=== PATIENT | female | born 1945 ===

== ENCOUNTER 2018-05-16 10:17 | Outpatient (CLI) | payer MEDICARE | END 2018-05-16 10:18 | disposition home or self-care (01) | LOC: C.DEXAIC 10:17 | DX: M81.0 Age-related osteoporosis without current pathological fracture (principal) ==

== ENCOUNTER 2018-08-10 06:02 | Day surgery (SDC) | payer MEDICARE ==
[2018-08-09 11:30] VITALS: BMI 36.8
[2018-08-10] MEDS ORDERED: Lactated Ringer's 1,000 ML IV ONE (07:55)
[2018-08-10] MEDS ORDERED: Propofol 10 mg/ml Inj (20 ML) ONE ×2 (08:05→08:16)
[2018-08-10] MEDS ORDERED: Etomidate 20 mg/10ml Inj IV ONE (08:05)
[2018-08-10] MEDS ORDERED: ePHEDrine 50 mg/ml Inj ONE (08:14)
[2018-08-10] MEDS ORDERED: Atropine 0.4 mg/ml Inj (1 mL) ONE (08:14)
[2018-08-10 08:53] VITALS: TEMP 98
[2018-08-10 09:09] VITALS: O2SAT 100
[2018-08-10 09:47] VITALS: BP 127/58; PULSE 65; RESP 18
== END 2018-08-10 11:20 | disposition home or self-care (01) ==
LOC: C.ENDO 06:02
PROVIDERS: ATTEND Internal Medicine Gastroenterology
DX: Z12.11 Encounter for screening for malignant neoplasm of colon (principal); D12.2 Benign neoplasm of ascending colon; D12.5 Benign neoplasm of sigmoid colon; K64.1 Second degree hemorrhoids; E11.9 Type 2 diabetes mellitus without complications; E78.5 Hyperlipidemia, unspecified; I25.10 Atherosclerotic heart disease of native coronary artery without angina pectoris; Z95.5 Presence of coronary angioplasty implant and graft
CPT/HCPCS: 45380; 45385; 82948; 88305; J0461; J2001; J2704; J7120

== ENCOUNTER 2018-08-29 09:15 | Outpatient (CLI) | payer MEDICARE | END 2018-08-29 09:16 | disposition home or self-care (01) | LOC: C.MAMMO 09:15 | DX: Z12.31 Encounter for screening mammogram for malignant neoplasm of breast (principal) ==